=== PATIENT | female | born 1970 | race Caucasian/White ===

== ENCOUNTER → 2019-05-25 15:10 | Outpatient (BNVA) | payer OTHER, SELFPAY | PROVIDERS: Family Provider Family Medicine; PCP Family Medicine; Visit Provider Nurse Practitioner | DX: F31.81 Bipolar II disorder (principal); F10.20 Alcohol dependence, uncomplicated; F17.210 Nicotine dependence, cigarettes, uncomplicated | CPT/HCPCS: 99213 ==

== ENCOUNTER → 2019-07-03 08:20 | Outpatient (BNVA) | payer OTHER, SELFPAY | PROVIDERS: Family Provider Family Medicine; PCP Family Medicine; Visit Provider Nurse Practitioner | DX: F31.81 Bipolar II disorder (principal) | CPT/HCPCS: 99214 ==

== ENCOUNTER → 2019-07-27 08:18 | Outpatient (BNVA) | payer OTHER, SELFPAY | PROVIDERS: Family Provider Family Medicine; PCP Family Medicine; Visit Provider Nurse Practitioner | DX: F31.81 Bipolar II disorder (principal) | CPT/HCPCS: 99213 ==

== ENCOUNTER → 2019-08-21 08:08 | Outpatient (BNVA) | payer OTHER, SELFPAY | PROVIDERS: Family Provider Family Medicine; PCP Family Medicine; Visit Provider Nurse Practitioner | DX: F31.81 Bipolar II disorder (principal); F41.1 Generalized anxiety disorder | CPT/HCPCS: 99213 ==

== ENCOUNTER → 2019-11-08 07:14 | Outpatient (BNVA) | payer OTHER, SELFPAY | PROVIDERS: Family Provider Family Medicine; PCP Family Medicine; Visit Provider Nurse Practitioner | DX: F31.81 Bipolar II disorder (principal); F10.20 Alcohol dependence, uncomplicated; F17.210 Nicotine dependence, cigarettes, uncomplicated | CPT/HCPCS: 99214 ==

== ENCOUNTER → 2019-12-12 07:34 | Outpatient (BNVA) | payer OTHER, SELFPAY | PROVIDERS: Family Provider Family Medicine; PCP Family Medicine; Visit Provider Nurse Practitioner | DX: F31.81 Bipolar II disorder (principal); F41.1 Generalized anxiety disorder | CPT/HCPCS: 99214 ==

== ENCOUNTER → 2020-01-17 07:33 | Outpatient (BNVA) | payer OTHER, SELFPAY | PROVIDERS: Family Provider Family Medicine; PCP Family Medicine; Visit Provider Nurse Practitioner | DX: F31.81 Bipolar II disorder (principal); F33.41 Major depressive disorder, recurrent, in partial remission | CPT/HCPCS: 99214 ==

== ENCOUNTER → 2020-02-12 09:03 | Outpatient (BNVA) | payer OTHER, SELFPAY | PROVIDERS: Family Provider Family Medicine; PCP Family Medicine; Visit Provider Nurse Practitioner Women's Health | DX: Z12.39 Encounter for other screening for malignant neoplasm of breast (principal); Z01.419 Encounter for gynecological examination (general) (routine) without abnormal findings | CPT/HCPCS: 87624; 88175 ==

== ENCOUNTER → 2020-02-14 08:21 | Outpatient (BNVA) | payer OTHER, SELFPAY | PROVIDERS: Family Provider Family Medicine; PCP Family Medicine; Visit Provider Nurse Practitioner | DX: F31.81 Bipolar II disorder (principal) | CPT/HCPCS: 99214 ==

== ENCOUNTER 2020-02-25 08:22 | Outpatient (CLI) | payer OTHER, SELFPAY ==
--- NOTE | 2020-02-25 08:30 | MM_ITS ---
WS: [id number] Bilateral screening digital mammogram, 02/25/2020 Clinical Data: Z12.39 - Encounter for other screening for malignant neoplasm of breast Comparison: 02/18/2017, 11/06/2014. Findings: The breast parenchymal pattern shows fat replacement. No spiculated masses or clustered calcification s are seen. There are no secondary signs of carcinoma. MM/[id number] Impression: 1. Negative bilateral mammogram unchanged. 2. Recommend annual screening mammograms. BIRADS: 1-Negative FOLLOW UP: 1 Year Follow-up The CAD odd piece checker was used.
== END 2020-02-25 08:23 | disposition home or self-care (01) ==
LOC: RADSHAW 08:26
PROVIDERS: Family Provider Family Medicine; PCP Family Medicine; Visit Provider Nurse Practitioner Women's Health
DX: Z12.31 Encounter for screening mammogram for malignant neoplasm of breast (principal)
CPT/HCPCS: 77067

== ENCOUNTER → 2020-03-26 09:40 | Outpatient (BNVA) | payer OTHER, SELFPAY | PROVIDERS: Family Provider Family Medicine; PCP Family Medicine; Visit Provider Obstetrics & Gynecology | DX: N93.9 Abnormal uterine and vaginal bleeding, unspecified (principal); R87.619 Unspecified abnormal cytological findings in specimens from cervix uteri | CPT/HCPCS: 81025; 88305 ==

== ENCOUNTER → 2020-03-27 10:04 | Outpatient (BNVA) | payer OTHER, SELFPAY | PROVIDERS: Family Provider Family Medicine; PCP Family Medicine; Visit Provider Nurse Practitioner | DX: F31.81 Bipolar II disorder (principal); F17.210 Nicotine dependence, cigarettes, uncomplicated; F41.1 Generalized anxiety disorder | CPT/HCPCS: 99214 ==

== ENCOUNTER → 2020-04-23 10:41 | Outpatient (BNVA) | payer OTHER, SELFPAY | PROVIDERS: Family Provider Family Medicine; PCP Family Medicine; Visit Provider Obstetrics & Gynecology | DX: Z98.890 Other specified postprocedural states (principal); Z97.5 Presence of (intrauterine) contraceptive device; N88.8 Other specified noninflammatory disorders of cervix uteri | CPT/HCPCS: 76830 ==

== ENCOUNTER → 2020-05-02 14:03 | Outpatient (BNVA) | payer OTHER, SELFPAY | PROVIDERS: Family Provider Family Medicine; PCP Family Medicine; Visit Provider Obstetrics & Gynecology | DX: Z20.822 Contact with and (suspected) exposure to COVID-19 (principal); N84.0 Polyp of corpus uteri | CPT/HCPCS: 87635 ==

== ENCOUNTER 2020-05-08 06:39 | Day surgery (SDC) | payer OTHER, SELFPAY ==
[2020-05-07 10:29] VITALS: BMI 23.9
[2020-05-08 06:45] VITALS: BP 117/80; PULSE 91; RESP 18; TEMP 36.5; O2SAT 98
[2020-05-08] MEDS: sodium chloride 0.9% 1,000 ML 30 ML IV (06:52)
[2020-05-08 07:27] LABS: Basophils # 0.1 10^3/uL (0.0-0.1); Basophils % 0.8 %; Eosinophils # 0.5 10^3/uL (0.0-0.8); Eosinophils % 8.4 %; Hematocrit 36.2 % (37.0-47.0); Hemoglobin 12.5 g/dL (11.5-15.3); Lymphocytes % 31.2 %; Mean Corpuscular HGB Conc 34.5 g/dL (30.0-36.0); Mean Corpuscular Hemoglobin 32.2 pg (28.0-34.0); Mean Corpuscular Volume 93.3 fL (81-99); Monocytes # 0.5 10^3/uL (0.2-0.9); Monocytes % 8.1 %; Neutrophils # 3.25 10^3/uL (1.8-7.7); Neutrophils % 51.3 %; Nucleated Red Blood Cells % 0 %; Platelet Count 251 10^3/cmm (130-400); Red Blood Count 3.88 10^6/uL (4.1-5.3); Red Cell Distribution Width 11.9 % (12.1-15.1); White Blood Count 6.3 10^3/uL (4.0-10.0)
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
--- NOTE | 2020-05-08 08:03 | P.HPUD_ITS ---
Surgery/Procedure H&P Update DATE OF PROCEDURE: May 08, 2020 DATE H&P PERFORMED: 04/23/20 H&P UPDATE INFORMATION: I have reviewed H&P completed within last 30 days, I have examined patient prior to procedure, No changes to prior documentation and H&P is in [facility] EMR on date indicated PREOP DIAGNOSIS: Endometrial polyp PLANNED PROCEDURE: Operation Date: 05/08/20 08:00 Proposed Procedures p Hysteroscopy 90665 N84.0(Not Applicable) - Carlee Hackett MD s Dilation And Curettage (D&C)(Not Applicable) - Carlee Hackett MD s possible Poylpectomy(Not Applicable) - Carlee Hackett MD
--- NOTE | 2020-05-08 08:36 | PM.OP ---
Operative Report Date of procedure: May 08, 2020 OPERATIVE REPORT Date of surgery: 05/08/2020 Date of dictation: 05/08/2020 Preoperative diagnosis: Endometrial polyp Postoperative diagnosis/findings: Same, 6-week size anteverted uterus, mobile, nontender, posterior cervix/with vaginal tissue, on hysteroscopy normal cervical cavity, small 2 mm polyp arising from the right sidewall versus fluffy endometrial tissue, remainder of endometrial tissue appeared thin and small and bilateral ostia visualized. Procedure done: Hysteroscopy, polypectomy, D&C, removal of the Mirena IUD Specimens removed/disposition of specimens: Endometrial curettings and polyp sent to pathology Surgeon: Dr. Carlee Goncalves General Agent: Clotilde Chavez Anesthesia:MAC Estimated blood loss: Less than 25 ml Intravenous fluids: 500 mL of LR Urine output: none in OR Medications: As per anesthesia records Complications: None, patient was taken to the recovery room in a stable condition PROCEDURE: After consent was obtained patient was taken to the operating room where she is placed under MAC anesthesia without any difficulty. She was placed supine on the table in lithotomy position. Care was taken to ensure that her legs were well positioned to avoid pressure points. She was then prepped and draped in the usual sterile fashion. Exam under anesthesia was done at this time which showed findings noted above. The weighted speculum and lateral vaginal wall retractors were placed in the vagina and the cervix was visualized. The cervix appeared small and stenotic. Attempt was made to dilate the cervix with IUD in place however this was not possible and the Mirena IUD was removed without any difficulty.. The cervix was dilated to a 15 Barone dilator. This allowed placement of a 3 mm hysteroscope into the uterine cavity without any difficulty. Once the hysteroscope was placed in the uterine cavity, the endocervical canal was visualized and appeared normal .the uterine cavity was visualized and findings noted above. Hysteroscopic graspers were placed and the polyp was removed without any difficulty. Sharp curette was then placed in the endometrium was curetted without any difficulty.The endometrial curettings were sent to pathology in . No active bleeding was noted from the cervix. Tenaculum was removed and hemostasis was achieved with silver nitrate. Good hemostasis was achieved. All instruments were removed from the vagina. Patient was cleaned well and anesthesia was reversed without any difficulty. She was taken to the recovery in a stable condition. FOLLOW UP: Follow-up in 2 weeks and 6 weeks with surgeon MEDICATION ON DISCHARGE: Colace 100 mg by mouth every 12 hours when necessary constipation, 30 tablets, no refills Ibuprofen 800 mg by mouth every 8 hours when necessary pain, 60 tablets, no refills Continue other home medication DISPOSITION: Home in a stable condition This documentation was created by [employer] combination teacher software (known for inherent middle school combination teacher error). Every effort was made to assure accuracy of middle school combination teacher. Any obvious errors or omissions should be clarified with the author of the document. Pre-op Diagnosis: Endometrial polyp
[2020-05-08 08:38] VITALS: BP 127/87; PULSE 75; RESP 16; TEMP 36.6; O2SAT 96
[2020-05-08 08:56] VITALS: BP 135/85; PULSE 71; RESP 18; O2SAT 98
--- NOTE | 2020-05-08 12:50 | ANE.PACU2 ---
Inpatient post-anesthesia follow up: Airway intact: Yes Vital signs: Temperature 97.8 F Pulse Rate 71 Respiratory Rate 18 Blood Pressure 135/85 Pulse Oximetry 98 Oxygen Delivery Me thod Room Air Oxygen Flow Rate Fraction of Inspir ed Oxygen Hydration adequate: Yes Nausea and vomiting: No Pain level: 1 Mental status: Baseline
== END 2020-05-08 09:21 | disposition home or self-care (01) ==
PROVIDERS: PCP Family Medicine; Visit Provider Obstetrics & Gynecology
PROC: 0UJD8ZZ Inspection of Uterus and Cervix, Via Natural or Artificial Opening Endoscopic (ICD-10-PCS; CPT 58555; principal; 2020-05-08 08:00)
PROC: (CPT 58120; 2020-05-08 08:00)
PROC: (CPT 58558; 2020-05-08 08:00)
PROC: (CPT 58301; 2020-05-08 08:00)
DX: N84.0 Polyp of corpus uteri (principal); J44.9 Chronic obstructive pulmonary disease, unspecified; I10 Essential (primary) hypertension; F41.9 Anxiety disorder, unspecified; F32.9 Major depressive disorder, single episode, unspecified; F17.210 Nicotine dependence, cigarettes, uncomplicated
CPT/HCPCS: 58558; 36415; 85025; 88305; J2250; J2405; J2704; J3010; J7030

== ENCOUNTER → 2020-06-17 08:16 | Outpatient (BNVA) | payer OTHER, SELFPAY | PROVIDERS: PCP Family Medicine; Visit Provider Nurse Practitioner | DX: F41.1 Generalized anxiety disorder; F17.210 Nicotine dependence, cigarettes, uncomplicated; F31.81 Bipolar II disorder | CPT/HCPCS: 99214 ==

== ENCOUNTER → 2020-06-18 15:40 | Outpatient (BNVA) | payer OTHER, SELFPAY | PROVIDERS: PCP Family Medicine; Visit Provider Obstetrics & Gynecology | DX: N93.9 Abnormal uterine and vaginal bleeding, unspecified (principal) | CPT/HCPCS: 81025 ==

== ENCOUNTER → 2020-06-24 15:49 | Outpatient (BNVA) | payer OTHER, SELFPAY | PROVIDERS: PCP Family Medicine; Visit Provider Obstetrics & Gynecology | DX: R35.0 Frequency of micturition (principal); B37.3 Candidiasis of vulva and vagina | CPT/HCPCS: 81000 ==

== ENCOUNTER → 2020-07-23 08:28 | Outpatient (BNVA) | payer OTHER, SELFPAY | PROVIDERS: PCP Family Medicine; Visit Provider Obstetrics & Gynecology | DX: R30.0 Dysuria (principal) | CPT/HCPCS: 81003; 87077; 87086; 87184 ==

== ENCOUNTER → 2020-08-05 08:24 | Outpatient (BNVA) | payer OTHER, SELFPAY | PROVIDERS: PCP Family Medicine; Visit Provider Nurse Practitioner | DX: F31.81 Bipolar II disorder (principal); F41.1 Generalized anxiety disorder | CPT/HCPCS: 99214 ==

== ENCOUNTER → 2021-02-13 15:35 | Outpatient (BNVA) | payer OTHER, SELFPAY | PROVIDERS: PCP Family Medicine; Visit Provider Nurse Practitioner Women's Health | DX: N87.0 Mild cervical dysplasia (principal); Z12.39 Encounter for other screening for malignant neoplasm of breast; Z12.11 Encounter for screening for malignant neoplasm of colon; Z01.419 Encounter for gynecological examination (general) (routine) without abnormal findings; N93.9 Abnormal uterine and vaginal bleeding, unspecified | CPT/HCPCS: 87624 ==

== ENCOUNTER → 2021-04-10 11:59 | Outpatient (BNVA) | payer OTHER, SELFPAY | PROVIDERS: PCP Family Medicine; Visit Provider Surgery | DX: Z20.822 Contact with and (suspected) exposure to COVID-19 (principal); Z11.52 Encounter for screening for COVID-19 | CPT/HCPCS: 87635 ==

== ENCOUNTER 2021-05-25 07:33 | Outpatient (CLI) | payer OTHER, SELFPAY ==
--- NOTE | 2021-05-25 07:39 | MM_ITS ---
WS: [id number] Bilateral screening 3D tomosynthesis digital mammogram, 05/25/2021 Clinical Data: Z12.39 - Encounter for other screening for malignant neop... Comparison: 02/25/2020, 02/18/2017, 11/06/2014. Findings: The breast parenchymal pattern shows fat replacement. No spiculated masses or clustered calcification s are seen. There are no secondary signs of carcinoma. MM/[place] [id number] Impression: 1. Negative bilateral mammogram unchanged. 2. Recommend annual screening mammograms. BIRADS: 1-Negative FOLLOW UP: 1 Year Follow-up The CAD work checker was used.
== END 2021-05-25 07:34 | disposition home or self-care (01) ==
PROVIDERS: PCP Family Medicine; Visit Provider Nurse Practitioner Women's Health
DX: Z12.31 Encounter for screening mammogram for malignant neoplasm of breast (principal)
CPT/HCPCS: 77063; 77067

== ENCOUNTER → 2021-06-04 14:40 | Outpatient (BNVA) | payer OTHER, SELFPAY | PROVIDERS: PCP Family Medicine; Visit Provider Surgery | DX: Z20.822 Contact with and (suspected) exposure to COVID-19 (principal); Z11.52 Encounter for screening for COVID-19 | CPT/HCPCS: 87635 ==

== ENCOUNTER 2021-06-11 08:04 | Day surgery (SDC) | payer OTHER, SELFPAY ==
[2021-06-09 12:50] VITALS: BMI 24.0
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
[2021-06-11 09:02] VITALS: BP 136/87; PULSE 80; RESP 18; TEMP 36.1; O2SAT 99
[2021-06-11 09:08] LABS: OR HCG Qualitative Urine Negative (Negative)
[2021-06-11] MEDS: sodium chloride 0.9% 1,000 ML 30 ML IV (09:14)
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
[2021-06-11 10:29] VITALS: BP 104/75; PULSE 92; RESP 16; TEMP 36.4; O2SAT 97
--- NOTE | 2021-06-11 10:35 | ANE.PACU2 ---
Inpatient post-anesthesia follow up: Airway intact: Yes Vital signs: Temperature 97 F Pulse Rate 80 Respiratory Rate 18 Blood Pressure 136/87 Pulse Oximetry 99 Oxygen Delivery Me thod Room Air Oxygen Flow Rate Fraction of Inspir ed Oxygen Hydration adequate: Yes Nausea and vomiting: No Pain level: 1 Mental status: Baseline
[2021-06-11 10:47] VITALS: BP 113/74; PULSE 68; RESP 16; O2SAT 93
--- NOTE | 2021-06-11 14:31 | ANE.PACU2 ---
Inpatient post-anesthesia follow up: Airway intact: Yes Vital signs: Temperature 97.5 F Pulse Rate 68 Respiratory Rate 16 Blood Pressure 113/74 Pulse Oximetry 93 Oxygen Delivery Me thod Room Air Oxygen Flow Rate Fraction of Inspir ed Oxygen Hydration adequate: Yes Nausea and vomiting: No Pain level: 1 Mental status: Baseline
== END 2021-06-11 11:00 | disposition home or self-care (01) ==
PROVIDERS: Anesthesiology; PCP Family Medicine; Visit Provider Surgery
PROC: 0DJD8ZZ Inspection of Lower Intestinal Tract, Via Natural or Artificial Opening Endoscopic (ICD-10-PCS; CPT 45378; principal; 2021-06-11 09:30)
DX: Z12.11 Encounter for screening for malignant neoplasm of colon (principal); F41.9 Anxiety disorder, unspecified; F32.9 Major depressive disorder, single episode, unspecified; I10 Essential (primary) hypertension; F17.210 Nicotine dependence, cigarettes, uncomplicated; Z91.51 Personal history of suicidal behavior
CPT/HCPCS: 45378; 81025; 84703; J2704; J7030

== ENCOUNTER → 2022-05-06 11:00 | Outpatient (BNVA) | payer OTHER, SELFPAY | PROVIDERS: PCP Family Medicine; Visit Provider Nurse Practitioner Women's Health | DX: N95.1 Menopausal and female climacteric states (principal); Z01.419 Encounter for gynecological examination (general) (routine) without abnormal findings; N32.81 Overactive bladder | CPT/HCPCS: 82670; 83001; 87624 ==

== ENCOUNTER → 2022-08-31 15:06 | Outpatient (BNVA) | payer OTHER, SELFPAY | PROVIDERS: PCP Family Medicine; Visit Provider Nurse Practitioner | DX: Z79.899 Other long term (current) drug therapy (principal); F32.A Depression, unspecified; F41.1 Generalized anxiety disorder; F43.12 Post-traumatic stress disorder, chronic; F10.20 Alcohol dependence, uncomplicated; F31.81 Bipolar II disorder; F41.9 Anxiety disorder, unspecified; F32.9 Major depressive disorder, single episode, unspecified | CPT/HCPCS: 80053; 80061; 83036 ==

== ENCOUNTER 2023-07-27 09:20 | Outpatient (CLI) | payer OTHER, SELFPAY ==
--- NOTE | 2023-07-27 09:30 | MM_ITS ---
WS: [id number] BILATERAL SCREENING DIGITAL TOMOSYNTHESIS MAMMOGRAM WITH CAD HISTORY: Z12.31 - Encounter for screening mammogram for malignant ... COMPARISON: 05/25/2021, 02/25/2020 Bilateral CC and MLO views with tomosynthesis and synthetic mammography submitted. Computer aided det ection analyzed. Breast composition: There are scattered areas of fibroglandular density. No suspicious masses, microc alcifications or architectural distortion. Asymmetry at 12:00 LEFT breast middle depth has been prese nt for multiple prior years. No interval change. MM/[place] [id number] IMPRESSION: BI-RADS: 2-Benign FOLLOW UP: 1 Year Follow-up
== END 2023-07-27 09:21 | disposition home or self-care (01) ==
LOC: MOBLMAM 09:24
PROVIDERS: PCP Nurse Practitioner Women's Health; Visit Provider Nurse Practitioner Women's Health
DX: Z12.31 Encounter for screening mammogram for malignant neoplasm of breast (principal)
CPT/HCPCS: 77063; 77067

== ENCOUNTER → 2024-02-16 14:52 | Outpatient (BNVA) | payer OTHER, SELFPAY | PROVIDERS: PCP Nurse Practitioner Women's Health; Visit Provider Nurse Practitioner Women's Health | DX: R30.0 Dysuria (principal) | CPT/HCPCS: 81000; 87086 ==

== ENCOUNTER 2024-08-28 10:53 | Outpatient (CLI) | payer OTHER, SELFPAY ==
--- NOTE | 2024-08-28 11:20 | MM_ITS ---
WS: [id number] BILATERAL 3D TOMOSYNTHESIS DIGITAL SCREENING MAMMOGRAPHY WITH CAD CLINICAL INFORMATION: SCREENING HISTORY: Screening mammogram. No current complaints. COMPARISON: 2023 TECHNIQUE: Bilateral CC and MLO views. FINDINGS: Scattered fibroglandular densities bilaterally. No suspicious focal mass, asymmetry, calcifications, or architectural distortion. No evidence of malignancy. Incidental punctate calcifications. MM/MM [facility] tomosynthesis [id number] IMPRESSION: DENSITY: There are scattered areas of fibroglandular density. BI-RADS: 2 - Benign. FOLLOW UP: 1 Year Follow-up Recommend return to annual screening mammography.
== END 2024-08-28 10:54 | disposition home or self-care (01) ==
PROVIDERS: PCP Nurse Practitioner Women's Health; Visit Provider Nurse Practitioner Women's Health
DX: Z12.31 Encounter for screening mammogram for malignant neoplasm of breast (principal)
CPT/HCPCS: 77063; 77067

== ENCOUNTER → 2025-02-21 16:12 | Outpatient (BNVA) | payer OTHER, SELFPAY | PROVIDERS: PCP Family Medicine; Visit Provider Nurse Practitioner Women's Health | DX: Z78.0 Asymptomatic menopausal state (principal) | CPT/HCPCS: 82306; 82670 ==

== ENCOUNTER 2025-03-01 14:58 | Outpatient (CLI) | payer OTHER, SELFPAY ==
--- NOTE | 2025-03-01 15:30 | XR_ITS ---
WS: [id number] SCREENING DEXA SCAN [employer] CLINICAL INFORMATION: Z78.0 - Asymptomatic menopausal state COMPARISON: None. FINDINGS: The L1-L4 bone mineral density measures 1.058 g/cm2. This corresponds to a T score score of -1.0 and Z score of -0.2. Left femoral neck bone mineral density measures 0.918 g/cm2. This corresponds to a T score of -0.7 and Z score of 0.0. Right femoral neck bone mineral density measures 0.890 g/cm2. This corresponds to a T score -0.9of and Z score of -0.2. Mean femoral neck bone mineral density measures 0.904 g/cm2. This corresponds to a T score of -0.8 and Z score of -0.1. XR/XR DEXA axial skeleton* [id number] IMPRESSION: Osteopenia lumbar spine. Normal bone mineralization femoral necks. Patient's FRAX calculated 10 year probability for major osteoporotic fracture i s 13.9% and osteoporotic hip fracture is 0.9%.
== END 2025-03-01 14:59 | disposition home or self-care (01) ==
LOC: RAD 15:04
PROVIDERS: PCP Family Medicine; Visit Provider Nurse Practitioner Women's Health
DX: Z13.820 Encounter for screening for osteoporosis (principal); Z78.0 Asymptomatic menopausal state; M85.88 Other specified disorders of bone density and structure, other site
CPT/HCPCS: 77080